=== PATIENT | female | born 1970 | race Caucasian/White ===

== ENCOUNTER 2016-05-01 10:27 | Emergency (ER) | payer OTHER ==
[~2016-05-01] VITALS: Ht 175.2 cm; Wt 108.9 kg
[~2016-05-01 10:27] MED LIST: ALBUTEROL0.09 MG/A2 INH; ALLERGY RELIEF10 M1 PO; AMOXICILLIN500 M2 PO; AMOXICILLIN500 MG PO; AMOXIL500 MG PO; CIPRO250 MG PO; CIPRO500 MG PO; DIFLUCAN150 MG PO; EES400 MG PO; ELIMITE 5%60 GM T; FLEXERIL10 MG PO; FLONASE 0.05% 121 EA NAS; FLONASE ALLERG9.9 ML NAS; FLONASE0.05 MG/AC NS; HYDROCODONE BIT1 T11 PO; LOMOTIL 0.025 M1 TA1 PO; MOTRIN800 MG PO; MUCINEX600 MG PO; Motrin,Rufen800 MG PO; OMNICEF300 MG PO; PERCOCET 325 MG1 TA2 PO; PREDNICOT20 MG PO; PREDNISONE10 MG PO; PYRIDIUM200 MG PO; ROBITUSSIN AC 110 ML PO; TRAMADOL HCL50 MG PO; VIBRAMYCIN100 MG PO; ZITHROMAX Z PA250 MG PO; ZOFRAN ODT4 MG PO; ZOFRAN ODT4 MG SL; ZYRTEC10 MG PO
[2016-05-01] MEDS ORDERED: PREDNISONE10 MG PO (11:09)
[2016-05-01] MEDS ORDERED: FLONASE ALLERG9.9 ML NAS (11:09)
[2016-05-01] MEDS ORDERED: ROBITUSSIN AC 110 ML PO (11:09)
[2016-05-31] MEDS ORDERED: FLONASE ALLERG9.9 ML NAS (19:21)
[2016-05-31] MEDS ORDERED: ROBITUSSIN AC 110 ML PO (19:21)
[2016-05-31] MEDS ORDERED: PREDNISONE10 MG PO (19:21)
[2016-05-31] MEDS ORDERED: CLARITIN10 MG PO (19:21)
== END 2016-05-01 12:20 | disposition home or self-care (01) ==
LOC: ED 10:27
DX: B34.9 Viral infection, unspecified (principal); R03.0 Elevated blood-pressure reading, without diagnosis of hypertension

== ENCOUNTER 2016-05-04 12:51 | Emergency (ER) | payer OTHER ==
[~2016-05-04] VITALS: Ht 175.2 cm; Wt 108.9 kg
[2016-05-31] MEDS ORDERED: ROBITUSSIN AC 110 ML PO (19:21)
[2016-05-31] MEDS ORDERED: CLARITIN10 MG PO (19:21)
[2016-05-31] MEDS ORDERED: PREDNISONE10 MG PO (19:21)
[2016-05-31] MEDS ORDERED: FLONASE ALLERG9.9 ML NAS (19:21)
== END 2016-05-04 15:00 | disposition home or self-care (01) ==
LOC: ED 12:51
DX: S90.121A Contusion of right lesser toe(s) without damage to nail, initial encounter (principal); W18.30XA Fall on same level, unspecified, initial encounter; Y93.89 Activity, other specified; Y92.9 Unspecified place or not applicable; Y99.9 Unspecified external cause status

== ENCOUNTER 2016-09-24 13:55 | Emergency (ER) | payer OTHER ==
[~2016-09-24] VITALS: Wt 108.9 kg
[~2016-09-24 13:55] MED LIST changes: +CLARITIN10 MG PO
[2016-09-24] MEDS ORDERED: QVAR8.7 GM PO (14:04)
[2016-09-24] MEDS ORDERED: PROAIR HFA8.5 GM INH (14:04)
== END 2016-09-24 15:01 | disposition home or self-care (01) ==
LOC: ED 13:55
DX: S71.111A Laceration without foreign body, right thigh, initial encounter (principal); W45.0XXA Nail entering through skin, initial encounter; Y93.89 Activity, other specified; Y92.89 Other specified places as the place of occurrence of the external cause; Y99.8 Other external cause status

== ENCOUNTER 2016-09-26 21:26 | Emergency (ER) | payer OTHER ==
[~2016-09-26] VITALS: Ht 175.2 cm; Wt 108.9 kg
[~2016-09-26 21:26] MED LIST changes: +PROAIR HFA8.5 GM INH; +QVAR8.7 GM PO
[2016-09-26] MEDS ORDERED: KEFLEX500 M1 PO (21:54)
== END 2016-09-26 21:59 | disposition home or self-care (01) ==
LOC: ED 21:26
DX: S71.111D Laceration without foreign body, right thigh, subsequent encounter (principal); R03.0 Elevated blood-pressure reading, without diagnosis of hypertension; Z48.00 Encounter for change or removal of nonsurgical wound dressing; X58.XXXD Exposure to other specified factors, subsequent encounter; Y92.9 Unspecified place or not applicable; Y99.9 Unspecified external cause status

== ENCOUNTER 2016-10-07 13:24 | Emergency (ER) | payer OTHER ==
[~2016-10-07] VITALS: Ht 175.2 cm; Wt 113.4 kg
[~2016-10-07 13:24] MED LIST changes: +KEFLEX500 M1 PO
[2016-10-07] MEDS ORDERED: DELTASONE20 M1 PO (14:51)
== END 2016-10-07 15:17 | disposition home or self-care (01) ==
LOC: ED 13:24
DX: J45.901 Unspecified asthma with (acute) exacerbation (principal)

== ENCOUNTER 2016-11-11 14:06 | Emergency (ER) | payer OTHER ==
[~2016-11-11] VITALS: Ht 175.2 cm; Wt 111.1 kg
[~2016-11-11 14:06] MED LIST changes: +DELTASONE20 M1 PO
== END 2016-11-11 14:37 | disposition home or self-care (01) ==
LOC: ED 14:06
DX: D22.4 Melanocytic nevi of scalp and neck (principal)

== ENCOUNTER 2016-12-11 10:20 | Emergency (ER) | payer OTHER ==
[~2016-12-11] VITALS: Wt 113.4 kg
[2016-12-11] MEDS ORDERED: PREDNISONE50 MG PO (11:58)
[2016-12-11] MEDS ORDERED: ZITHROMAX250 MG PO (11:58)
== END 2016-12-11 12:15 | disposition home or self-care (01) ==
LOC: ED 10:20
DX: J20.9 Acute bronchitis, unspecified (principal); J45.909 Unspecified asthma, uncomplicated; Z79.899 Other long term (current) drug therapy

== ENCOUNTER 2016-12-18 17:38 | Emergency (ER) | payer OTHER ==
[~2016-12-18] VITALS: Ht 175.2 cm; Wt 108.9 kg
[~2016-12-18 17:38] MED LIST changes: +PREDNISONE50 MG PO; +ZITHROMAX250 MG PO
[2016-12-18] MEDS ORDERED: MEDROL DOSEPAK4 MG PO (18:47)
== END 2016-12-18 20:07 | disposition home or self-care (01) ==
LOC: ED 17:38
DX: J44.1 Chronic obstructive pulmonary disease with (acute) exacerbation (principal)

== ENCOUNTER 2016-12-30 18:16 | Emergency (ER) | payer OTHER ==
[~2016-12-30] VITALS: Wt 113.4 kg
[~2016-12-30 18:16] MED LIST changes: +MEDROL DOSEPAK4 MG PO
[2016-12-30] MEDS ORDERED: CEPHALEXIN500 M1 PO (19:08)
[2016-12-30] MEDS ORDERED: LIDEX 0.05% CRE15 GM T (19:08)
== END 2016-12-30 19:16 | disposition home or self-care (01) ==
LOC: ED 18:16
DX: S80.862A Insect bite (nonvenomous), left lower leg, initial encounter (principal); Z79.899 Other long term (current) drug therapy; W57.XXXA Bitten or stung by nonvenomous insect and other nonvenomous arthropods, initial encounter; Y93.89 Activity, other specified; Y92.89 Other specified places as the place of occurrence of the external cause; Y99.9 Unspecified external cause status

== ENCOUNTER 2017-01-24 19:44 | Emergency (ER) | payer OTHER ==
[~2017-01-24] VITALS: Ht 175.2 cm; Wt 113.4 kg
[~2017-01-24 19:44] MED LIST changes: +CEPHALEXIN500 M1 PO; +LIDEX 0.05% CRE15 GM T
[2017-01-24] MEDS ORDERED: DELTASONE20 M1 PO (21:37)
== END 2017-01-24 21:43 | disposition home or self-care (01) ==
LOC: ED 19:44
DX: J45.901 Unspecified asthma with (acute) exacerbation (principal)

== ENCOUNTER 2017-02-22 14:25 | Emergency (ER) | payer OTHER ==
[~2017-02-22] VITALS: Ht 175.2 cm; Wt 117.9 kg
[2017-02-22] MEDS ORDERED: AMOXICILLIN500 M2 PO (16:18)
[2017-02-22] MEDS ORDERED: ZYRTEC10 MG PO (16:18)
== END 2017-02-22 16:20 | disposition home or self-care (01) ==
LOC: ED 14:25
DX: J06.9 Acute upper respiratory infection, unspecified (principal); Z79.899 Other long term (current) drug therapy

== ENCOUNTER 2017-03-21 09:40 | Emergency (ER) | payer OTHER ==
[~2017-03-21] VITALS: Ht 175.2 cm; Wt 113.4 kg
[2017-03-21] MEDS ORDERED: AMOXICILLIN500 M2 PO (10:55)
[2017-03-21] MEDS ORDERED: MEDROL DOSEPAK4 MG PO (10:55)
== END 2017-03-21 11:19 | disposition home or self-care (01) ==
LOC: ED 09:40
DX: J45.901 Unspecified asthma with (acute) exacerbation (principal); Z79.899 Other long term (current) drug therapy

== ENCOUNTER 2017-05-16 12:47 | Emergency (ER) | payer OTHER ==
[~2017-05-16] VITALS: Ht 175.2 cm; Wt 117.9 kg
[2017-05-16] MEDS ORDERED: FLONASE ALLERG9.9 ML NS (13:31)
[2017-05-16] MEDS ORDERED: OMNICEF300 MG PO (13:31)
== END 2017-05-16 13:59 | disposition home or self-care (01) ==
LOC: ED 12:47
DX: H66.91 Otitis media, unspecified, right ear (principal)

== ENCOUNTER 2017-06-03 10:20 | Emergency (ER) | payer OTHER ==
[~2017-06-03] VITALS: Wt 117.9 kg
[~2017-06-03 10:20] MED LIST changes: +FLONASE ALLERG9.9 ML NS
[2017-06-03] MEDS ORDERED: AMOXICILLIN500 M2 PO (12:49)
[2017-06-03] MEDS ORDERED: PREDNISONE20 M1 PO (12:49)
== END 2017-06-03 12:52 | disposition home or self-care (01) ==
LOC: ED 10:20
DX: J20.9 Acute bronchitis, unspecified (principal)

== ENCOUNTER 2019-02-04 19:33 | Emergency (ER) | payer OTHER ==
[~2019-02-04] VITALS: Ht 175.2 cm; Wt 113.4 kg
[~2019-02-04 19:33] MED LIST changes: +PREDNISONE20 M1 PO
[2019-02-04] MEDS ORDERED: MONTELUKAST SOD10 MG PO (19:42)
[2019-02-04] MEDS ORDERED: BREO ELLIPTA 21 EACH INH (19:42)
[2019-02-04] MEDS ORDERED: RANITIDINE75 MG PO (19:42)
[2019-02-04] MEDS ORDERED: TYLOPHEN500 M2 PO (19:43)
[2019-02-04] MEDS ORDERED: VENTOLIN 02.5 MG/3 M INH (19:46)
[2019-02-04] MEDS ORDERED: PREDNISONE20 M1 PO (19:59)
[2019-02-04] MEDS ORDERED: ZITHROMAX250 MG PO (19:59)
== END 2019-02-04 20:03 | disposition home or self-care (01) ==
LOC: ED 19:33
DX: J45.901 Unspecified asthma with (acute) exacerbation (principal); J06.9 Acute upper respiratory infection, unspecified; Z79.899 Other long term (current) drug therapy

== ENCOUNTER 2019-03-31 18:03 | Emergency (ER) | payer OTHER ==
[~2019-03-31] VITALS: Ht 175.2 cm; Wt 113.4 kg
[~2019-03-31 18:03] MED LIST changes: +BREO ELLIPTA 21 EACH INH; +MONTELUKAST SOD10 MG PO; +RANITIDINE75 MG PO; +TYLOPHEN500 M2 PO; +VENTOLIN 02.5 MG/3 M INH
[2019-03-31] MEDS ORDERED: ZYRTEC10 MG PO (19:29)
[2019-03-31] MEDS ORDERED: FLONASE ALLERG9.9 ML NAS (19:29)
[2019-03-31] MEDS ORDERED: AMOXICILLIN500 M2 PO (19:29)
== END 2019-03-31 19:26 | disposition home or self-care (01) ==
LOC: ED 18:03
DX: J01.90 Acute sinusitis, unspecified (principal); J45.909 Unspecified asthma, uncomplicated; Z79.2 Long term (current) use of antibiotics; Z79.899 Other long term (current) drug therapy

== ENCOUNTER 2019-04-19 14:39 | Emergency (ER) | payer OTHER ==
[~2019-04-19] VITALS: Ht 175.2 cm; Wt 115.7 kg
== END 2019-04-19 17:54 | disposition home or self-care (01) ==
LOC: ED 14:39
DX: S93.402A Sprain of unspecified ligament of left ankle, initial encounter (principal); J45.909 Unspecified asthma, uncomplicated; Z79.899 Other long term (current) drug therapy; X50.1XXA Overexertion from prolonged static or awkward postures, initial encounter; Y93.89 Activity, other specified; Y92.89 Other specified places as the place of occurrence of the external cause; Y99.8 Other external cause status

== ENCOUNTER 2019-09-25 18:14 | Emergency (ER) | payer OTHER ==
[~2019-09-25] VITALS: Ht 175.2 cm; Wt 113.4 kg
== END 2019-09-25 22:30 | disposition home or self-care (01) ==
LOC: ED 18:14
DX: S66.912A Strain of unspecified muscle, fascia and tendon at wrist and hand level, left hand, initial encounter (principal); S66.911A Strain of unspecified muscle, fascia and tendon at wrist and hand level, right hand, initial encounter; S86.911A Strain of unspecified muscle(s) and tendon(s) at lower leg level, right leg, initial encounter; S60.222A Contusion of left hand, initial encounter; J45.909 Unspecified asthma, uncomplicated; Z79.899 Other long term (current) drug therapy; X58.XXXA Exposure to other specified factors, initial encounter; Y93.89 Activity, other specified; Y92.89 Other specified places as the place of occurrence of the external cause; Y99.8 Other external cause status

== ENCOUNTER 2019-09-27 19:12 | Emergency (ER) | payer OTHER ==
[~2019-09-27] VITALS: Ht 175.2 cm; Wt 113.4 kg
== END 2019-09-27 20:45 | disposition home or self-care (01) ==
LOC: ED 19:12
DX: S66.912A Strain of unspecified muscle, fascia and tendon at wrist and hand level, left hand, initial encounter (principal); S40.022A Contusion of left upper arm, initial encounter; S60.222A Contusion of left hand, initial encounter; J45.909 Unspecified asthma, uncomplicated; Z79.899 Other long term (current) drug therapy; W18.39XA Other fall on same level, initial encounter; Y93.89 Activity, other specified; Y92.89 Other specified places as the place of occurrence of the external cause; Y99.8 Other external cause status

== ENCOUNTER 2020-03-19 17:12 | Emergency (ER) | payer OTHER ==
[~2020-03-19] VITALS: Ht 177.8 cm; Wt 113.4 kg
[2020-03-19] MEDS ORDERED: KEFLEX500 M1 PO (18:06)
== END 2020-03-19 18:42 | disposition home or self-care (01) ==
LOC: ED 17:12
DX: S90.861A Insect bite (nonvenomous), right foot, initial encounter (principal); Z79.899 Other long term (current) drug therapy; Z79.2 Long term (current) use of antibiotics; W57.XXXA Bitten or stung by nonvenomous insect and other nonvenomous arthropods, initial encounter; Y93.89 Activity, other specified; Y92.89 Other specified places as the place of occurrence of the external cause; Y99.8 Other external cause status

== ENCOUNTER 2020-03-30 10:19 | Emergency (ER) | payer OTHER ==
[~2020-03-30] VITALS: Ht 175.2 cm; Wt 113.4 kg
[2020-03-30 11:47] LABS: BASO % 0.5 % (0.0-1.0); EOS # 0.1 10*3/uL (0.0-0.4); EOS % 0.8 % (1.0-4.0); HEMATOCRIT 44.6 % (37.0-47.0); LYMPH # 1.4 10*3/uL (1.3-4.4); LYMPH % 22.6 % (27.0-41.0); MEAN CELL VOLUME 88.5 fl (81.0-99.0); MEAN CORPUSCULAR HGB 27.8 pg (27.0-31.0); MEAN CORPUSCULAR HGB CONC 31.4 g/dl (33.0-37.0); MONO # 0.5 10*3/uL (0.1-1.0); MONO % 7.2 % (3.0-9.0); NEUT # 4.4 10*3/uL (2.3-7.9); NEUT % 68.7 % (47.0-73.0); PLATELET COUNT AUTOMATED 299 10*3/uL (130-400); RED BLOOD COUNT 5.04 10*6/uL (4.10-5.10); RED CELL DISTRI WIDTH 13.2 % (0-14.5); WHITE BLOOD COUNT 6.4 10*3/uL (4.8-10.8)
[2020-03-30 12:02] LABS: ALBUMIN 3.5 gm/dl (3.1-4.5); ALKALINE PHOSPHATASE 91 U/L (45-117); BUN 10 mg/dl (7-24); CHLORIDE 109 mmol/L (98-107); CREATININE 0.61 mg/dL (0.55-1.02); POTASSIUM 3.5 mmol/L (3.5-5.1); SGOT/AST 34 IU/L (3-35); SGPT/ALT 40 U/L (12-78); SODIUM 140 mmol/L (136-145)
[2020-03-30 12:05] LABS: TROPONIN I < 0.015 ng/ml (<0.045)
[2020-03-30 12:11] LABS: ACT PARTIAL THROMBO TIME 25.7 SECONDS (20.0-32.1)
[2020-03-30] MEDS ORDERED: ECPIRIN325 MG PO (14:33)
== END 2020-03-30 15:01 | disposition home or self-care (01) ==
LOC: ED 10:19
PROVIDERS: Emergency Medicine
DX: H53.2 Diplopia (principal); G58.8 Other specified mononeuropathies; I10 Essential (primary) hypertension; E11.9 Type 2 diabetes mellitus without complications; Z79.899 Other long term (current) drug therapy

== ENCOUNTER 2020-09-03 08:41 | Emergency (ER) | payer OTHER ==
[~2020-09-03 08:41] MED LIST changes: +ECPIRIN325 MG PO
[2020-09-03] MEDS ORDERED: OZEMPIC0.25 MG/01 SQ (08:54)
[2020-09-03] MEDS ORDERED: LANTUS SOL100 UNIT/1 SC (08:55)
[2020-09-03] MEDS ORDERED: OMEPRAZOLE MAGN20 MG PO (08:55)
[2020-09-03] MEDS ORDERED: ATORVASTATIN CA20 M1 PO (08:56)
[2020-09-03] MEDS ORDERED: CYCLOBENZAPRINE10 MG PO (12:12)
[2020-09-03] MEDS ORDERED: NAPROXEN500 M1 PO (12:12)
== END 2020-09-03 14:10 | disposition home or self-care (01) ==
LOC: ED 08:41
DX: S76.012A Strain of muscle, fascia and tendon of left hip, initial encounter (principal); Z79.82 Long term (current) use of aspirin; Z88.8 Allergy status to other drugs, medicaments and biological substances; X58.XXXA Exposure to other specified factors, initial encounter; Y93.89 Activity, other specified; Y92.89 Other specified places as the place of occurrence of the external cause; Y99.8 Other external cause status

== ENCOUNTER 2020-09-13 19:55 | Emergency (ER) | payer OTHER ==
[~2020-09-13] VITALS: Ht 175.2 cm; Wt 113.4 kg
[~2020-09-13 19:55] MED LIST changes: +ATORVASTATIN CA20 M1 PO; +CYCLOBENZAPRINE10 MG PO; +LANTUS SOL100 UNIT/1 SC; +NAPROXEN500 M1 PO; +OMEPRAZOLE MAGN20 MG PO; +OZEMPIC0.25 MG/01 SQ
[2020-09-13] MEDS ORDERED: ZITHROMAX250 MG PO (20:42)
== END 2020-09-13 21:05 | disposition home or self-care (01) ==
LOC: ED 19:55
DX: S50.812A Abrasion of left forearm, initial encounter (principal); S60.512A Abrasion of left hand, initial encounter; S30.811A Abrasion of abdominal wall, initial encounter; E11.9 Type 2 diabetes mellitus without complications; J45.909 Unspecified asthma, uncomplicated; Z91.030 Bee allergy status; Z88.7 Allergy status to serum and vaccine; Z79.899 Other long term (current) drug therapy; Z79.4 Long term (current) use of insulin; W55.03XA Scratched by cat, initial encounter; Y93.89 Activity, other specified; Y92.238 Other place in hospital as the place of occurrence of the external cause; Y99.8 Other external cause status

== ENCOUNTER 2020-10-02 13:22 | Emergency (ER) | payer OTHER | END 2020-10-02 14:30 | disposition left against medical advice (07) | LOC: ED 13:22 | DX: R05 Cough (principal); Z53.21 Procedure and treatment not carried out due to patient leaving prior to being seen by health care provider ==

== ENCOUNTER 2020-10-13 19:24 | Emergency (ER) | payer OTHER ==
[~2020-10-13] VITALS: Wt 111.1 kg
[2020-10-13] MEDS ORDERED: ZITHROMAX250 MG PO (20:31)
[2020-10-13] MEDS ORDERED: PREDNISONE20 M1 PO (20:31)
== END 2020-10-13 20:50 | disposition home or self-care (01) ==
LOC: ED 19:24
DX: J45.909 Unspecified asthma, uncomplicated (principal); Z91.030 Bee allergy status; Z88.7 Allergy status to serum and vaccine; Z79.2 Long term (current) use of antibiotics; Z79.899 Other long term (current) drug therapy; Z79.82 Long term (current) use of aspirin; Z79.4 Long term (current) use of insulin

== ENCOUNTER 2021-01-17 09:03 | Emergency (ER) | payer OTHER ==
[~2021-01-17] VITALS: Wt 106.6 kg
[2021-01-17 09:57] LABS: HEMATOCRIT 41.3 % (37.0-47.0); LYMPH # 0.5 10*3/uL (1.3-4.4); LYMPH % 11.9 % (27.0-41.0); MEAN CELL VOLUME 84.3 fl (81.0-99.0); MEAN CORPUSCULAR HGB 27.6 pg (27.0-31.0); MEAN CORPUSCULAR HGB CONC 32.7 g/dl (33.0-37.0); MEAN PLATELET VOLUME 8.6 fl (9.6-12.3); MONO # 0.2 10*3/uL (0.1-1.0); MONO % 5.6 % (3.0-9.0); NEUT # 3.5 10*3/uL (2.3-7.9); NEUT % 82.3 % (47.0-73.0); PLATELET COUNT AUTOMATED 198 10*3/uL (130-400); RED CELL DISTRI WIDTH 12.8 % (0-14.5); WHITE BLOOD COUNT 4.3 10*3/uL (4.8-10.8)
[2021-01-17 10:11] LABS: ALBUMIN 2.8 gm/dl (3.1-4.5); ALKALINE PHOSPHATASE 75 U/L (45-117); BUN 11 mg/dl (7-24); CHLORIDE 99 mmol/L (98-107); CREATININE 0.68 mg/dL (0.55-1.02); SGOT/AST 33 IU/L (3-35); SGPT/ALT 31 U/L (12-78); SODIUM 133 mmol/L (136-145); TOTAL PROTEIN 7.6 gm/dL (6.4-8.2)
== END 2021-01-17 13:38 | disposition home or self-care (01) ==
LOC: ED 09:03
PROVIDERS: Family Medicine
DX: U07.1 COVID-19 (principal); J12.82 Pneumonia due to coronavirus disease 2019; M54.9 Dorsalgia, unspecified; E86.0 Dehydration; Z91.030 Bee allergy status; Z88.7 Allergy status to serum and vaccine; Z79.2 Long term (current) use of antibiotics; Z79.899 Other long term (current) drug therapy; Z79.82 Long term (current) use of aspirin; Z79.4 Long term (current) use of insulin